=== PATIENT | male | born 1995 | race Caucasian/White ===

== ENCOUNTER 2021-01-14 10:12 | Day surgery (SDC) | payer BC ==
[~2021-01-14] VITALS: Ht 193 cm; Wt 66.9 kg
[~2021-01-14 10:12] MED LIST: AMOXICILLIN 8751 TAB PO; FLONASE NASAL S16 GM NS
[2021-01-14 11:10] VITALS: BP 124/71; PULSE 73; TEMP 97.5
--- NOTE | 2021-01-14 11:18 | NUR ---
TO RM AT 1042- CALL LIGHT IN REACH FATHER AT BEDSIDE.
[2021-01-14] MEDS ORDERED: NORCO 325 MG-51 TAB PO (14:15)
[2021-01-14 14:46] VITALS: TEMP 98.5
[2021-01-14 15:20] VITALS: BP 138/79; PULSE 96
--- NOTE | 2021-01-14 15:20 | NUR ---
TO RM 8 PER CART FROM PACU. OPENS EYES TO VERBAL STIMULI AND FALLS BACK TO SLEEP. 02 AT 2L WITH SATS 100%, DISCONTINUED O2 AND SATS 98%. SKIN ADHESIVE INTACT OVER INCISION SITES. FATHER AT BEDSIDE.
[2021-01-14 15:35] VITALS: BP 115/68; PULSE 76
--- NOTE | 2021-01-14 15:35 | NUR ---
SLEEPING AND OCCASIONALLY WAKING UP TO TALK WITH DAD. RECEIVED WATER AND TAKING SIPS.
[2021-01-14 15:50] VITALS: BP 115/64; PULSE 73
[2021-01-14 16:05] VITALS: BP 113/54; PULSE 81
--- NOTE | 2021-01-14 16:05 | NUR ---
RECEIVED NANI PUDDING.
--- NOTE | 2021-01-14 16:15 | NUR ---
ATE 100% PUDDING AND RECEIVED NORCO 5MG FOR INCREASED PAIN TO 5/10.
--- NOTE | 2021-01-14 16:50 | NUR ---
AMBULATED TO BATHROOM, BUT COULD NOT VOID AT THIS TIME. RECEIVED DISCHARGE INSTUCTIONS AND VERBALIZED UNDERSTANDING. DISCONTINUED IV AND INT- CATHETER INTACT. PATIENT GETTING DRESSED.
--- NOTE | 2021-01-14 17:15 | NUR ---
DISCHARGED PER WC BY NURSING STAFF TO PRIVATE CAR IN CARE OF FATHER
== END 2021-01-14 17:22 | disposition home or self-care (01) ==
LOC: SDCO 10:12
DX: K40.20 Bilateral inguinal hernia, without obstruction or gangrene, not specified as recurrent (principal)
CPT/HCPCS: C1781; J0690; J1100; J1885; J2405; J2704; J3010; J7050; J7120